=== PATIENT | male | born 2000 | race Caucasian/White ===

== ENCOUNTER 2018-01-12 11:35 | Emergency (ER) | payer OTHER ==
[~2018-01-12] VITALS: Ht 188 cm; Wt 68.1 kg
[2018-01-12 13:37] LABS: BASOPHILS # (AUTO) 0.03 x10^3/uL (0-0.3); BASOPHILS % (AUTO) 0 % (0-1); EOSINOPHILS # (AUTO) 0.05 x10^3/uL (0-0.8); EOSINOPHILS % (AUTO) 0 % (1-7); LYMPHOCYTES # (AUTO) 1.36 x10^3/uL (1-6.1); LYMPHOCYTES % (AUTO) 13 % (22-44); MD NO; MEAN CORPUSCULAR HEMOGLOBIN 30.5 pg (27.5-34.5); MEAN CORPUSCULAR HGB CONC 34.7 g/dL (33.2-36.2); MEAN CORPUSCULAR VOLUME 88.1 fL (81-97); MEAN PLATELET VOLUME 8.5 fL (7.4-10.4); MONOCYTES % (AUTO) 6 % (2-9); NEUTROPHILS # (AUTO) 8.68 x10^3/uL (1.8-8.0); NEUTROPHILS % (AUTO) 81 % (42-75); PLATELET COUNT 254 x10^3/uL (130-400); RED BLOOD COUNT 5.13 x10^6/uL (4.38-5.82); RED CELL DISTRIBUTION WIDTH 13.3 % (9.4-14.8)
[2018-01-12 13:43] LABS: ANION GAP 6 mmol/L (5-15); CALCIUM 9.1 mg/dL (8.5-10.1); CHLORIDE 109 mmol/L (98-107); CREATININE 0.87 mg/dL (0.7-1.3)
[2018-01-12 13:44] LABS: ALBUMIN 4.2 g/dL (3.4-5.0); T4 (THYROXINE) 9.2 mcg/dL (4.5-12.1)
[2018-01-12 16:26] VITALS: BP 142/72
== END 2018-01-12 16:29 | disposition home or self-care (01) ==
LOC: ED 13:51
DX: R00.2 Palpitations (principal)
CPT/HCPCS: 36415; 80048; 82040; 84436; 84443; 85025; 85379; 93005; 93306; 99285